=== PATIENT | female | born 1990 | race Caucasian/White ===

== ENCOUNTER → 2023-09-04 | Outpatient (CLI) | payer OTHER | LOC: MHCPAIN 14:48 | DX: M47.897 Other spondylosis, lumbosacral region (principal); M54.16 Radiculopathy, lumbar region | CPT/HCPCS: G0463 ==

== ENCOUNTER → 2023-10-17 | Outpatient (CLI) | payer OTHER ==
[~2023-10-17] MED LIST: Iohexol 300 - 10 ML VIAL ONE; Lidocaine PF 2% (20 MG/ML) 2 ML VIAL ONE
== END ==
LOC: MHCPAIN 07:52
DX: M54.16 Radiculopathy, lumbar region (principal)
CPT/HCPCS: J1100; Q9967

== ENCOUNTER → 2023-10-22 | Outpatient (CLI) | payer OTHER ==
[~2023-10-22] MED LIST changes: +Iohexol 300 - 10 ML VIAL IV ONE; -Iohexol 300 - 10 ML VIAL ONE; -Lidocaine PF 2% (20 MG/ML) 2 ML VIAL ONE
== END ==
LOC: COL.RAD 08:50
DX: Z31.69 Encounter for other general counseling and advice on procreation (principal)
CPT/HCPCS: Q9967

== ENCOUNTER → 2023-11-04 | Outpatient (CLI) | payer OTHER | LOC: MHCPAIN 08:06 | DX: M47.816 Spondylosis without myelopathy or radiculopathy, lumbar region (principal); M51.36 Other intervertebral disc degeneration, lumbar region | CPT/HCPCS: G0463 ==

== ENCOUNTER → 2024-05-19 | Outpatient (CLI) | payer OTHER | LOC: MHCPAIN 13:57 | DX: M47.27 Other spondylosis with radiculopathy, lumbosacral region (principal); M51.26 Other intervertebral disc displacement, lumbar region | CPT/HCPCS: G0463 ==

== ENCOUNTER → 2024-06-04 | Outpatient (CLI) | payer OTHER ==
[~2024-06-04] MED LIST changes: -Iohexol 300 - 10 ML VIAL IV ONE; +Iohexol 300 - 10 ML VIAL ONE; +Lidocaine PF 2% (20 MG/ML) 2 ML VIAL ONE
== END ==
LOC: MHCPAIN 10:13
DX: M54.16 Radiculopathy, lumbar region (principal)
CPT/HCPCS: J1100; Q9967